=== PATIENT | female | born 1980 ===

== ENCOUNTER 2016-10-20 05:02 | Emergency (ER) | payer OTHER ==
--- NOTE | 2016-10-20 05:14 | ED CLINICAL REPORT ---
Clinical Report - Physicians/Mid Levels [facility] [address] [place] [address] 10/20/2016 5:03 Patient: MAGALIE YOUNG Time Seen: 05:11; initial patient contact. HISTORY OF PRESENT ILLNESS Chief Complaint: Injury to left thigh. The injury happened 2 days ago. Occurred at home. The patient sustained a laceration from a knife. Patient is experiencing mild pain. Patient denies injury to the head or neck. REVIEW OF SYSTEMS The patient sustained a laceration. No swelling, tingling or suspected foreign body. She has no pain on weight bearing. All systems otherwise negative, except as recorded above. PAST HISTORY See nurses notes. Last tetanus immunization was more than 5 years ago. SOCIAL HISTORY Current every day smoker. No alcohol use or drug use. ADDITIONAL NOTES The nursing notes have been reviewed. PHYSICAL EXAM Vital Signs: 10/20/2016 05:08 BP: 127/91. HR: 94. RR: 16. O2 saturation: 99%. Temp: 98.2 F. Pain level now: 2/10. Have been reviewed. Hypertensive. Heart rate normal. Respiratory rate normal. Temperature normal. Oxygen saturation normal. Appearance: Alert. Oriented X3. No acute distress. Skin: Skin warm and dry. Normal skin color. Extremities: Left thigh: mild erythema and tenderness, superficial 1.0 cm laceration and medium sized ecchymosis. Neurovascular intact distally. No foreign body. Lower extremity exam otherwise negative. Gait: Normal gait. Neuro, Vascular and Tendons: Vascular status intact. Sensation intact. Motor intact. Tendon function intact. Neuro: Oriented X 3. No motor deficit. PROGRESS AND PROCEDURES Disposition: Discharged home in good condition. Condition: good. CLINICAL IMPRESSION Single superficial laceration to the left thigh. Delayed treatment. (No repair). No infection or foreign body present. INSTRUCTIONS Your Current Medications: CONTINUE TAKING THE FOLLOWING MEDICATIONS: None*. Prescription Medications: Bactroban 2% ointment: apply small amount to affected area three times daily until symptoms resolved. Dispense twenty-two (22) grams. No refills. Substitution is permissible. Follow-up: Follow up with your doctor in about three days. Call for an appointment. Screening today revealed the patient's blood pressure to be in the hypertensive range. The patient should follow up with a primary care provider for blood pressure management. (Electronically signed by Mega Reyes Dr. 10/20/2016 7:48)
--- NOTE | 2016-10-20 05:14 | ED ORDER SUMMARY ---
..... Patient: MAGALIE YOUNG OrderSheet [facility] VisitID: [id number] [address] [place] [address] 36y, F Registration Date/Time: 10/20/2016 ORDER SHEET Weight: 79.3 kg (stated) Allergies: No Known Drug Allergy GENERAL ORDERS: MEDICATION ORDERS: Tdap IM 0.5 mL (NOW, per protocol) (05:14 10/20/2016 Cecile Trimble) (Ack 5:17 Jerome R.N.) (5:22 Jerome R.N.) IV FLUIDS: ORDER SHEET NOTES: [Electronically signed by Simone Aguilar R.N. (05:24 10/20/2016)] [Electronically signed by Mega Reyes Dr. (07:48 10/20/2016)] [Electronically locked/signed by Simone Aguilar R.N. (05:24 10/20/2016)]
--- NOTE | 2016-10-20 05:14 | ED CLINICAL REPORT ---
Clinical Report - Physicians/Mid Levels [facility] [address] [place] [address] 10/20/2016 5:03 Patient: MAGALIE YOUNG Time Seen: 05:11; initial patient contact. HISTORY OF PRESENT ILLNESS Chief Complaint: Injury to left thigh. The injury happened 2 days ago. Occurred at home. The patient sustained a laceration from a knife. Patient is experiencing mild pain. Patient denies injury to the head or neck. REVIEW OF SYSTEMS The patient sustained a laceration. No swelling, tingling or suspected foreign body. She has no pain on weight bearing. All systems otherwise negative, except as recorded above. PAST HISTORY See nurses notes. Last tetanus immunization was more than 5 years ago. SOCIAL HISTORY Current every day smoker. No alcohol use or drug use. ADDITIONAL NOTES The nursing notes have been reviewed. PHYSICAL EXAM Vital Signs: 10/20/2016 05:08 BP: 127/91. HR: 94. RR: 16. O2 saturation: 99%. Temp: 98.2 F. Pain level now: 2/10. Have been reviewed. Hypertensive. Heart rate normal. Respiratory rate normal. Temperature normal. Oxygen saturation normal. Appearance: Alert. Oriented X3. No acute distress. Skin: Skin warm and dry. Normal skin color. Extremities: Left thigh: mild erythema and tenderness, superficial 1.0 cm laceration and medium sized ecchymosis. Neurovascular intact distally. No foreign body. Lower extremity exam otherwise negative. Gait: Normal gait. Neuro, Vascular and Tendons: Vascular status intact. Sensation intact. Motor intact. Tendon function intact. Neuro: Oriented X 3. No motor deficit. PROGRESS AND PROCEDURES Disposition: Discharged home in good condition. Condition: good. CLINICAL IMPRESSION Single superficial laceration to the left thigh. Delayed treatment. (No repair). No infection or foreign body present. INSTRUCTIONS Your Current Medications: CONTINUE TAKING THE FOLLOWING MEDICATIONS: None*. Prescription Medications: Bactroban 2% ointment: apply small amount to affected area three times daily until symptoms resolved. Dispense twenty-two (22) grams. No refills. Substitution is permissible. Follow-up: Follow up with your doctor in about three days. Call for an appointment. Screening today revealed the patient's blood pressure to be in the hypertensive range. The patient should follow up with a primary care provider for blood pressure management. (Electronically signed by Mega Reyes Dr. 10/20/2016 7:48)
--- NOTE | 2016-10-20 05:14 | ED NURSING NOTES ---
Clinical Report - Nurses [facility] [address] [place] [address] 10/20/2016 5:03 [id number] Triage time 05:08. Acuity: LEVEL 4. Chief Complaint: INJURY TO THE LEFT THIGH. 05:14. Alert. SEPSIS SCREEN: Sepsis Screen. Negative (no infection suspected/documented). --05:14 Simone Aguilar R.N. 05:08 10/20/16. BP: 127/91. HR: 94. RR: 16. O2 saturation: 99%. Temp: 98.2 F. Pain level now: 07/05. --05:14 Simone Aguilar R.N. Weight: 79.3 kg stated. Height/Length: 62 inches Per Patient. BMI: 32. --05:10 Simone Aguilar R.N. Medications None. --05:10 Simone Aguilar R.N. Medication/allergy information source: the patient. --05:14 Simone Aguilar R.N. Allergies No Known Drug Allergy. --05:10 Simone Aguilar R.N. History Arrived by private vehicle. Historian: patient. Unaccompanied. Primary physician ([facility]). This occurred (Friday). Occurred at home. She sustained a laceration from a knife (Machetti). Treatment WEBSPHERE ARCHITECT: None. PAST MEDICAL HX: Tetanus status: more than 5 years ago. Immunizations: up-to-date. Last normal menstrual period- 2 years ago. Uses depo injections. SOCIAL HX: Current every day heavy tobacco smoker- less than 1 pack per day. No alcohol use or drug use. No infectious disease exposure. ABUSE ASSESSMENT: No report of abuse. FALL RISK ASSESSMENT: Fall risk assessment completed. No fall risk identified. NUTRITIONAL RISK ASSESSMENT: The nutritional risk assessment revealed no deficiencies. FUNCTIONAL ASSESSMENT: Functional assessment: no impairments noted. LEARNING NEEDS ASSESSMENT: The learning needs assessment revealed no barriers. SKIN INTEGRITY ASSESSMENT: Skin integrity risk assessment completed. No skin integrity risk identified. --05:14 Simone Aguilar R.N. ADDITIONAL SURGERIES: Breast Augmentation. --05:10 Simone Aguilar R.N. Interventions ID band on patient. To treatment room. --05:14 Simone Aguilar R.N. PHYSICAL ASSESSMENT 05:15. Ambulatory to room. Patient gowned. GENERAL / NEURO / PSYCH: Alert. EXTREMITIES: Neuro-vascular status intact to the extremity. Left thigh: ecchymosis (Healing 1/4" wound). SKIN: Skin is warm and dry. --05:15 Simone Aguilar R.N. NURSING PROGRESS NOTES 05:15. Two patient identifiers checked. Call light placed in reach. Bed placed in lowest position. Brakes of bed on. Patient ready for evaluation- chart flagged. --05:15 Simone Aguilar R.N. 05:19 10/20/2016 TDAP IM 0.5 mL given. (Lot#: [id number], expiration date: 10/03/2018, Medical Pathologist: [employer] pasteur). Given in the left deltoid. Allergies verified and confirmed 5 rights. Vaccine information statement provided to the patient. --05:22 Simone Aguilar R.N. Extremities: Neuro-vascular status intact to the extremities. 05:21. The patient is calm and resting quietly. GENERAL / NEURO / PSYCH: Alert. Oriented X 4. RESPIRATORY: No respiratory distress. SKIN: Skin is warm and dry. --05:24 Simone Aguilar R.N. DISPOSITION / DISCHARGE Departure time: 05:23. Condition at departure: stable. No learning barriers present. Discharge instructions provided and reviewed with the patient. Reviewed medication(s) side effects, precautions, dosing and course information. Prescription(s) given to the patient. Patient verbalized understanding. Written instructions provided in Togolese. The patient was discharged home and unaccompanied at time of discharge. She left the Emergency Department ambulatory and via private vehicle. Patient driving. FALL RISK ASSESSMENT: Fall risk assessment completed. No fall risk identified. --05:23 Simone Aguilar R.N. Locked/Released at 10/20/2016 5:24 by Simone Aguilar R.N.
--- NOTE | 2016-10-20 05:14 | ED NURSING NOTES ---
Clinical Report - Nurses [facility] [address] [place] [address] 10/20/2016 5:03 [id number] Triage time 05:08. Acuity: LEVEL 4. Chief Complaint: INJURY TO THE LEFT THIGH. 05:14. Alert. SEPSIS SCREEN: Sepsis Screen. Negative (no infection suspected/documented). --05:14 Simone Aguilar R.N. 05:08 10/20/16. BP: 127/91. HR: 94. RR: 16. O2 saturation: 99%. Temp: 98.2 F. Pain level now: 07/05. --05:14 Simone Aguilar R.N. Weight: 79.3 kg stated. Height/Length: 62 inches Per Patient. BMI: 32. --05:10 Simone Aguilar R.N. Medications None. --05:10 Simone Aguilar R.N. Medication/allergy information source: the patient. --05:14 Simone Aguilar R.N. Allergies No Known Drug Allergy. --05:10 Simone Aguilar R.N. History Arrived by private vehicle. Historian: patient. Unaccompanied. Primary physician ([facility]). This occurred (Friday). Occurred at home. She sustained a laceration from a knife (Machetti). Treatment PROJECT PORTFOLIO ANALYST: None. PAST MEDICAL HX: Tetanus status: more than 5 years ago. Immunizations: up-to-date. Last normal menstrual period- 2 years ago. Uses depo injections. SOCIAL HX: Current every day heavy tobacco smoker- less than 1 pack per day. No alcohol use or drug use. No infectious disease exposure. ABUSE ASSESSMENT: No report of abuse. FALL RISK ASSESSMENT: Fall risk assessment completed. No fall risk identified. NUTRITIONAL RISK ASSESSMENT: The nutritional risk assessment revealed no deficiencies. FUNCTIONAL ASSESSMENT: Functional assessment: no impairments noted. LEARNING NEEDS ASSESSMENT: The learning needs assessment revealed no barriers. SKIN INTEGRITY ASSESSMENT: Skin integrity risk assessment completed. No skin integrity risk identified. --05:14 Simone Aguilar R.N. ADDITIONAL SURGERIES: Breast Augmentation. --05:10 Simone Aguilar R.N. Interventions ID band on patient. To treatment room. --05:14 Simone Aguilar R.N. PHYSICAL ASSESSMENT 05:15. Ambulatory to room. Patient gowned. GENERAL / NEURO / PSYCH: Alert. EXTREMITIES: Neuro-vascular status intact to the extremity. Left thigh: ecchymosis (Healing 1/4" wound). SKIN: Skin is warm and dry. --05:15 Simone Aguilar R.N. NURSING PROGRESS NOTES 05:15. Two patient identifiers checked. Call light placed in reach. Bed placed in lowest position. Brakes of bed on. Patient ready for evaluation- chart flagged. --05:15 Simone Aguilar R.N. 05:19 10/20/2016 TDAP IM 0.5 mL given. (Lot#: [id number], expiration date: 10/03/2018, Association Executive: [employer] pasteur). Given in the left deltoid. Allergies verified and confirmed 5 rights. Vaccine information statement provided to the patient. --05:22 Simone Aguilar R.N. Extremities: Neuro-vascular status intact to the extremities. 05:21. The patient is calm and resting quietly. GENERAL / NEURO / PSYCH: Alert. Oriented X 4. RESPIRATORY: No respiratory distress. SKIN: Skin is warm and dry. --05:24 Simone Aguilar R.N. DISPOSITION / DISCHARGE Departure time: 05:23. Condition at departure: stable. No learning barriers present. Discharge instructions provided and reviewed with the patient. Reviewed medication(s) side effects, precautions, dosing and course information. Prescription(s) given to the patient. Patient verbalized understanding. Written instructions provided in Guatemalan. The patient was discharged home and unaccompanied at time of discharge. She left the Emergency Department ambulatory and via private vehicle. Patient driving. FALL RISK ASSESSMENT: Fall risk assessment completed. No fall risk identified. --05:23 Simone Aguilar R.N. Locked/Released at 10/20/2016 5:24 by Simone Aguilar R.N.
--- NOTE | 2016-10-20 05:14 | ED ORDER SUMMARY ---
..... Patient: MAGALIE YOUNG OrderSheet [facility] VisitID: [id number] [address] [place] [address] 36y, F Registration Date/Time: 10/20/2016 ORDER SHEET Weight: 79.3 kg (stated) Allergies: No Known Drug Allergy GENERAL ORDERS: MEDICATION ORDERS: Tdap IM 0.5 mL (NOW, per protocol) (05:14 10/20/2016 Cecile Trimble) (Ack 5:17 Jerome R.N.) (5:22 Jerome R.N.) IV FLUIDS: ORDER SHEET NOTES: [Electronically signed by Simone Aguilar R.N. (05:24 10/20/2016)] [Electronically signed by Mega Reyes Dr. (07:48 10/20/2016)] [Electronically locked/signed by Simone Aguilar R.N. (05:24 10/20/2016)]
--- NOTE | 2016-10-20 07:48 | ED MAR SUMMARY ---
..... Medication Administration Record [facility] [address] [place] [address] Patient: MAGALIE YOUNG Visit ID: [id number] 36y, F Weight: 79.3 kg Height/Length: 62 in BMI: 32 ALLERGIES: No Known Drug Allergy Given 05:19 10/20/2016 Simone Aguilar R.N. Medication Administered: TDAP [IM], Dose: 0.5 mL IM. Medication Ordered: Tdap IM 0.5 mL (NOW, per protocol).
--- NOTE | 2016-10-20 07:48 | ED DISCHARGE INSTRUCTIONS ---
Patient: MAGALIE YOUNG General Instructions [facility] VisitID: [id number] [place] [address] 36y, F Registration Date/Time: 10/20/2016 Single superficial laceration to the left thigh. Delayed treatment. (No repair). No infection or foreign body present. INSTRUCTIONS Your Current Medications: CONTINUE TAKING THE FOLLOWING MEDICATIONS: None*. Prescription Medications: Bactroban 2% ointment: apply small amount to affected area three times daily until symptoms resolved. Dispense twenty-two (22) grams. No refills. Substitution is permissible. Follow-up: Follow up with your doctor in about three days. Call for an appointment. Screening today revealed the patient's blood pressure to be in the hypertensive range. The patient should follow up with a primary care provider for blood pressure management. ADDITIONAL INFORMATION Laceration (All Closures) Alaceration is a cut through the skin. This will usually require stitches (sutures) or vivienne if it is deep. Minor cuts may be treated with a surgical tape closure orskin glue. Home care The following guidelines will help you care for your laceration at home: Extremity, face, or trunk wounds Keep the wound clean and dry. If a bandage was applied and it becomes wet or dirty, replace it. Otherwise, leave it in place for the first 24 hours. If stitches or vivienne were used, clean the wound daily. After removing the bandage, wash the area with soap and water. Use a wet cotton swab to loosen and remove any blood or crust that forms. The doctor may prescribe an antibiotic cream or ointment to prevent infection. Do not stop taking this medication until you have finished the prescribed course or the doctor tells you to stop. The doctor may also prescribe medications for pain. Follow the doctors instructions for taking these medications. You may remove the bandage to shower as usual after the first 24 hours, but do not soak the area in water (no swimming) until the stitches or vivienne are removed. If surgical tape was used, keep the area clean and dry. If it becomes wet, blot it dry with a towel. If skin glue was used, do not scratch, rub, or pick at the adhesive film. Do not place tape directly over the film. Do not apply liquid, ointment, or creams to the wound while the film is in place. Do not clean the wound with peroxide and do not apply ointments. Avoid activities that cause heavy sweating until the film has fallen off. Protect the wound from prolonged exposure to sunlight or tanning lamps. You may shower as usual but do not soak the wound in water (no baths or swimming). The film will fall off by itself in 510 days. Scalp wounds During the first two days, you may carefully rinse your hair in the shower to remove blood, glass or dirt particles. After two days, you may shower and shampoo your hair normally. Do not soak your scalp in the tub or go swimming until the stitches or vivienne have been removed. Talk with your doctor before applying any antibiotic ointment to the wound. Mouth wounds Eat soft foods to reduce pain. If the cut is inside of your mouth, clean by rinsing after each meal and at bedtime with a mixture of equal parts water and hydrogen peroxide (do not swallow!). Or, you can use a cotton swab to directly apply hydrogen peroxide onto the cut. Mouth wounds can be painful when eating. You may use an [id number] local numbing solution for pain relief. If this is not available, you may use any numbing solution for teething babies. You may apply this directly to the sores with a cotton-tip swab or with your finger. Follow-up care Follow up with your health care provider. Most skin wounds heal within ten days. Mouth and facial wounds heal within five days. However, even with proper treatment, a wound infection may sometimes occur. Therefore, you should check the wound daily for signs of infection listed below. Stitches should be removed from the face within five days; stitches and vivienne should be removed from other parts of the body within 714 days. If dissolving stitches were used in the mouth, these will fall out or dissolve without the need for removal. If tape closures were used, remove them yourself if they have not fallen off after 7 days. Ifskin glue was used, the film will fall off by itself in 510 days. When to seek medical care Get prompt medical attention if any of these occur: Bleeding not controlled by direct pressure Signs of infection, including increasing pain in the wound, increasing wound redness or swelling, or pus coming from the wound Fever of 100.4F (38C) or higher, or as directed by your health care provider Stitches or vivienne come apart or fall out or surgical tape falls off before 7 days Wound edges re-open Mupirocin Topical ointment What is this medicine? MUPIROCIN (myoo PEER oh sin) is an antibiotic. It is used on the skin to treat skin infections. How should I use this medicine? This medicine is for external use only. Follow the directions on the prescription label. Wash your hands before and after use. Before applying, wash the affected area with mild soap and water and pat dry. Apply a small amount to the affected area and rub gently. You can cover the area with a gauze dressing. Do not get this medicine in your eyes. If you do, rinse out with plenty of cool tap water. Do not use your medicine more often than directed. Finish the full course of medicine prescribed by your doctor or health wound care specialist even if you think your condition is better. Do not use over large areas of burnt skin. Talk to your bilingual sales assistant regarding the use of this medicine in children. Special care may be needed. What side effects may I notice from receiving this medicine? Side effects that you should report to your doctor or health wound care specialist as soon as possible: skin rash, redness, continued swelling, burning, itching, stinging, or pain Side effects that usually do not require medical attention (report to your doctor or health wound care specialist if they continue or are bothersome): dry skin, itching What may interact with this medicine? Interactions are not expected. Do not use any other skin products on the affected area without telling your doctor or health wound care specialist. What if I miss a dose? If you miss a dose, take it as soon as you can. If it is almost time for your next dose, take only that dose. Do not take double or extra doses. Where should I keep my medicine? Keep out of the reach of children. Store at room temperature between 20 and 25 degrees C (68 and 77 degrees F). Throw away any unused medicine after the expiration date. What should I tell my health care provider before I take this medicine? They need to know if you have any of these conditions: an unusual or allergic reaction to mupirocin, polyethylene glycol (PEG), or other topical antibiotic medicine or trying to get breast-feeding What should I watch for while using this medicine? Tell your doctor or health wound care specialist if your skin condition does not begin to improve within 3 to 5 days. You have been given the following additional information: Laceration, All Mupirocin Topical ointment (Electronically signed by Mega Reyes Dr. 10/20/2016 7:48)
--- NOTE | 2016-10-20 07:48 | ED MED RECONCILIATION SUMMARY ---
Patient: MAGALIE YOUNG Medication Reconciliation Report [facility] VisitID: [id number] [address] [place] [address] 36y, F Registration Date/Time: 10/20/2016 Weight: 79.3 kg Height/Length: 62 in. BMI: 32.0 ALLERGIES: No Known Drug Allergy The patient's Home Medications are listed below: NONE. The source(s) of the original Home Medication information: patient The following Medications were given to the patient in the Emergency Department: TDAP [IM] IM 0.5 mL, administered: 10/20/2016 5:19:00 AM The following Medications were prescribed to the patient: Bactroban 2% ointment: apply small amount to affected area three times daily until symptoms resolved. Dispense twenty-two (22) grams. No refills. Substitution is permissible. -- Mega Reyes Dr.
--- NOTE | 2016-10-20 07:48 | ED MED RECONCILIATION SUMMARY ---
Patient: MAGALIE YOUNG Medication Reconciliation Report [facility] VisitID: [id number] [address] [place] [address] 36y, F Registration Date/Time: 10/20/2016 Weight: 79.3 kg Height/Length: 62 in. BMI: 32.0 ALLERGIES: No Known Drug Allergy The patient's Home Medications are listed below: NONE. The source(s) of the original Home Medication information: patient The following Medications were given to the patient in the Emergency Department: TDAP [IM] IM 0.5 mL, administered: 10/20/2016 5:19:00 AM The following Medications were prescribed to the patient: Bactroban 2% ointment: apply small amount to affected area three times daily until symptoms resolved. Dispense twenty-two (22) grams. No refills. Substitution is permissible. -- Mega Reyes Dr.
--- NOTE | 2016-10-20 07:48 | ED DISCHARGE INSTRUCTIONS ---
Patient: MAGALIE YOUNG General Instructions [facility] VisitID: [id number] [place] [address] 36y, F Registration Date/Time: 10/20/2016 Single superficial laceration to the left thigh. Delayed treatment. (No repair). No infection or foreign body present. INSTRUCTIONS Your Current Medications: CONTINUE TAKING THE FOLLOWING MEDICATIONS: None*. Prescription Medications: Bactroban 2% ointment: apply small amount to affected area three times daily until symptoms resolved. Dispense twenty-two (22) grams. No refills. Substitution is permissible. Follow-up: Follow up with your doctor in about three days. Call for an appointment. Screening today revealed the patient's blood pressure to be in the hypertensive range. The patient should follow up with a primary care provider for blood pressure management. ADDITIONAL INFORMATION Laceration (All Closures) Alaceration is a cut through the skin. This will usually require stitches (sutures) or vivienne if it is deep. Minor cuts may be treated with a surgical tape closure orskin glue. Home care The following guidelines will help you care for your laceration at home: Extremity, face, or trunk wounds Keep the wound clean and dry. If a bandage was applied and it becomes wet or dirty, replace it. Otherwise, leave it in place for the first 24 hours. If stitches or vivienne were used, clean the wound daily. After removing the bandage, wash the area with soap and water. Use a wet cotton swab to loosen and remove any blood or crust that forms. The doctor may prescribe an antibiotic cream or ointment to prevent infection. Do not stop taking this medication until you have finished the prescribed course or the doctor tells you to stop. The doctor may also prescribe medications for pain. Follow the doctors instructions for taking these medications. You may remove the bandage to shower as usual after the first 24 hours, but do not soak the area in water (no swimming) until the stitches or vivienne are removed. If surgical tape was used, keep the area clean and dry. If it becomes wet, blot it dry with a towel. If skin glue was used, do not scratch, rub, or pick at the adhesive film. Do not place tape directly over the film. Do not apply liquid, ointment, or creams to the wound while the film is in place. Do not clean the wound with peroxide and do not apply ointments. Avoid activities that cause heavy sweating until the film has fallen off. Protect the wound from prolonged exposure to sunlight or tanning lamps. You may shower as usual but do not soak the wound in water (no baths or swimming). The film will fall off by itself in 510 days. Scalp wounds During the first two days, you may carefully rinse your hair in the shower to remove blood, glass or dirt particles. After two days, you may shower and shampoo your hair normally. Do not soak your scalp in the tub or go swimming until the stitches or vivienne have been removed. Talk with your doctor before applying any antibiotic ointment to the wound. Mouth wounds Eat soft foods to reduce pain. If the cut is inside of your mouth, clean by rinsing after each meal and at bedtime with a mixture of equal parts water and hydrogen peroxide (do not swallow!). Or, you can use a cotton swab to directly apply hydrogen peroxide onto the cut. Mouth wounds can be painful when eating. You may use an [id number] local numbing solution for pain relief. If this is not available, you may use any numbing solution for teething babies. You may apply this directly to the sores with a cotton-tip swab or with your finger. Follow-up care Follow up with your health care provider. Most skin wounds heal within ten days. Mouth and facial wounds heal within five days. However, even with proper treatment, a wound infection may sometimes occur. Therefore, you should check the wound daily for signs of infection listed below. Stitches should be removed from the face within five days; stitches and vivienne should be removed from other parts of the body within 714 days. If dissolving stitches were used in the mouth, these will fall out or dissolve without the need for removal. If tape closures were used, remove them yourself if they have not fallen off after 7 days. Ifskin glue was used, the film will fall off by itself in 510 days. When to seek medical care Get prompt medical attention if any of these occur: Bleeding not controlled by direct pressure Signs of infection, including increasing pain in the wound, increasing wound redness or swelling, or pus coming from the wound Fever of 100.4F (38C) or higher, or as directed by your health care provider Stitches or vivienne come apart or fall out or surgical tape falls off before 7 days Wound edges re-open Mupirocin Topical ointment What is this medicine? MUPIROCIN (myoo PEER oh sin) is an antibiotic. It is used on the skin to treat skin infections. How should I use this medicine? This medicine is for external use only. Follow the directions on the prescription label. Wash your hands before and after use. Before applying, wash the affected area with mild soap and water and pat dry. Apply a small amount to the affected area and rub gently. You can cover the area with a gauze dressing. Do not get this medicine in your eyes. If you do, rinse out with plenty of cool tap water. Do not use your medicine more often than directed. Finish the full course of medicine prescribed by your doctor or health plant health care technician even if you think your condition is better. Do not use over large areas of burnt skin. Talk to your gum machine operator regarding the use of this medicine in children. Special care may be needed. What side effects may I notice from receiving this medicine? Side effects that you should report to your doctor or health plant health care technician as soon as possible: skin rash, redness, continued swelling, burning, itching, stinging, or pain Side effects that usually do not require medical attention (report to your doctor or health plant health care technician if they continue or are bothersome): dry skin, itching What may interact with this medicine? Interactions are not expected. Do not use any other skin products on the affected area without telling your doctor or health plant health care technician. What if I miss a dose? If you miss a dose, take it as soon as you can. If it is almost time for your next dose, take only that dose. Do not take double or extra doses. Where should I keep my medicine? Keep out of the reach of children. Store at room temperature between 20 and 25 degrees C (68 and 77 degrees F). Throw away any unused medicine after the expiration date. What should I tell my health care provider before I take this medicine? They need to know if you have any of these conditions: an unusual or allergic reaction to mupirocin, polyethylene glycol (PEG), or other topical antibiotic medicine or trying to get breast-feeding What should I watch for while using this medicine? Tell your doctor or health plant health care technician if your skin condition does not begin to improve within 3 to 5 days. You have been given the following additional information: Laceration, All Mupirocin Topical ointment (Electronically signed by Mega Reyes Dr. 10/20/2016 7:48)
--- NOTE | 2016-10-20 07:48 | ED MAR SUMMARY ---
..... Medication Administration Record [facility] [address] [place] [address] Patient: MAGALIE YOUNG Visit ID: [id number] 36y, F Weight: 79.3 kg Height/Length: 62 in BMI: 32 ALLERGIES: No Known Drug Allergy Given 05:19 10/20/2016 Simone Aguilar R.N. Medication Administered: TDAP [IM], Dose: 0.5 mL IM. Medication Ordered: Tdap IM 0.5 mL (NOW, per protocol).
== END 2016-10-20 05:23 | disposition home or self-care (01) ==
LOC: ED SRH 05:02
DX: S71.112A Laceration without foreign body, left thigh, initial encounter (principal); W26.0XXA Contact with knife, initial encounter; Y92.009 Unspecified place in unspecified non-institutional (private) residence as the place of occurrence of the external cause; F17.210 Nicotine dependence, cigarettes, uncomplicated; Z23 Encounter for immunization